=== PATIENT | female | born 1950 | race Caucasian/White ===

== ENCOUNTER → 2017-09-18 | Outpatient (CLI) | payer OTHER ==
[~2017-09-18] MED LIST: ASPCH81X PO; ATOR-26 PO; ATV2 PO; LAMO200T35 PO; LEVO1CAP4 PO; PANT40TA PO; TEMA30CA4 PO; TRAZ100T29 PO; VITAMIN E PO
[2017-09-18 17:55] LABS: BASO % 0.4 %; BASO ABS # 0.03 K/uL (0-0.2); EOS % 2.4 %; EOS ABS # 0.17 K/uL (0-0.5); HEMATOCRIT 37.9 % (37-47); HEMOGLOBIN 12.9 g/dL (12.0-16.0); IG# 0.01 K/uL (0.00-0.02); LYMPH % 38.5 %; LYMPH ABS # 2.75 K/uL (1.2-3.4); MEAN CELL VOLUME 95.2 fL (80-100); MEAN CORPUSCULAR HEMOGLOBIN 32.4 pg (25-34); MONO % 7.3 %; MONO ABS # 0.52 K/uL (0.11-0.59); NEUT % 51.3 %; NEUT ABS # 3.67 K/uL (1.4-6.5); PLATELET COUNT 364 K/uL (130-400); RED CELL DISTRIBUTION WIDTH CV 13.7 % (11.5-14.5); RED CELL DISTRIBUTION WIDTH SD 47.6 fL (36.4-46.3); WHITE BLOOD COUNT 7.15 K/uL (4.8-10.8)
[2017-09-18 18:08] LABS: ALBUMIN 4.2 gm/dl (3.4-5.0); ALT/SGPT 37 U/L (12-78); BLOOD UREA NITROGEN 9 mg/dl (7-18); CALCIUM 9.3 mg/dl (8.5-10.1); CARBON DIOXIDE 26 mmol/L (21-32); CREATININE 0.68 mg/dl (0.60-1.20); GLUCOSE 93 mg/dl (70-99); POTASSIUM 4.1 mmol/L (3.5-5.1); SODIUM 135 mmol/L (136-145)
[2017-09-18 18:18] LABS: ALKALINE PHOSPHATASE 74 U/L (45-117); AST/SGOT 27 U/L (15-37); TOTAL PROTEIN 7.3 gm/dl (6.4-8.2)
== END | disposition home or self-care (01) ==
LOC: C.LABMFLN 15:03
PROVIDERS: ATTEND Family Medicine
DX: R00.2 Palpitations (principal)

== ENCOUNTER 2020-05-07 07:58 | Observation (INO) ==
--- NOTE | 2020-05-04 13:43 | Anesthesiology Consultation ---
Date of Service May 04, 2020 Assessment & Plan (1) Encounter for pre-operative examination: COVID Status: As of 04/23 nurse assessment, patient denies travel to endemic area, known exposure/sick contacts, or symptoms of COVID19. Preoperative COVID19 testing completed on 05/01, results NEGATIVE. S/P R open hernia repair 12/21/18 = atraumatic LMA insertion (LMA #4). No complications. Chart Review Chart Review: Acceptable Risk for Surgery and Patient NOT seen in Pre Admission Testing History Surgery Operation Date: 05/07/20 09:25 Proposed Procedures p Laparoscipic Hiatal Hernia with Fundoplication - Epifanio Parr, Height/Weight Height: 4 ft 11 in Weight: 74.389 kg Allergies Allergy/AdvReac Type Severity Reaction Status Date / Time Sulfa (Sulfonamide Allergy Severe HIVES Verified 04/23/20 11:20 Antibiotics) fluoxetine Allergy Intermediate Hives Verified 04/23/20 11:20 latex Allergy Mild RASH Verified 04/23/20 11:20 Medications Home Medications Medication Instructions Recorded Confirmed Last Taken atorvastatin 80 mg tablet 80 mg PO QAM #90 tab 01/24/19 04/23/20 Unknown buspirone 30 mg tablet 30 mg PO BID #180 tab 01/24/19 04/23/20 Unknown calcium carbonate 600 mg calcium 600 mg PO DAILY #90 tab 01/24/19 04/23/20 Unknown (1,500 mg) tablet cholecalciferol (vitamin D3) 50 4,000 units PO DAILY #180 tab 01/24/19 04/23/20 Unknown mcg (2,000 unit) tablet cholestyramine-aspartame 4 gram 1 g PO QPM #231 gm 01/24/19 04/23/20 Unknown oral powder escitalopram oxalate 20 mg tablet 20 mg PO QAM #90 tab 01/24/19 04/23/20 Unknown famotidine 40 mg tablet 40 mg PO QPM #90 tab 01/24/19 04/23/20 Unknown lamotrigine 200 mg tablet 200 mg PO HS #90 tab 01/24/19 04/23/20 Unknown lorazepam 1 mg tablet See Rx Instructions PO .COMPLEX 01/24/19 04/23/20 Unknown #45 tab psyllium husk 3.4 gram/5.4 gram 4 tbsp PO QAM #660 gm 01/24/19 04/23/20 Unknown oral powder trazodone 100 mg tablet 200 mg PO HS #60 tab 01/24/19 04/23/20 Unknown bupropion HCl 200 mg tablet,12 hr 200 mg PO BID ea 01/29/19 04/23/20 Unknown sustained-release albuterol sulfate 90 mcg/actuation 2 puffs INHALATION Q4H PRN #3 ea 06/19/19 04/23/20 Unknown breath activated powder inhaler pantoprazole 40 mg tablet,delayed 40 mg PO BID #30 tab 12/30/19 04/23/20 Unknown release denosumab 60 mg/mL subcutaneous 60 mg SUBCUT .every six months ml 03/17/20 04/23/20 Unknown syringe methocarbamol 500 mg tablet 500 mg PO TID #90 tab 04/17/20 04/23/20 Unknown zinc 50 mg PO QAM 04/23/20 04/23/20 Unknown Past Medical History Medical History Age related osteoporosis Anxiety and depression Arthritis Chest pain Per cardiology, "chronic atypical chest pain s/p cardiac cath 08/04/15 without significant CAD." Follows yearly with [facility] cardio. Gastritis GERD (gastroesophageal reflux disease) History of bleeding ulcers Hx of ectopic Hyperlipidemia Seizure Questionable seizure , has been on Lamictal since. Sleep apnea CPAP Past Family History Family History Father Heart disease Diabetes Hypertension Pancreatic cancer Sister Diabetes Hodgkin lymphoma Brother Diabetes Mother Hyperthyroidism Melanoma Denies family history of Ovarian cancer Prostate cancer Myocardial infarction Breast cancer Colorectal cancer Past Surgical History Surgical History (Updated 04/23/20 @ 11:35 by Ruba De Santiago RN) Family history of reaction to anesthesia MOTHER AND SISTER SLOW TO WAKE UP H/O abdominal surgery ECTOPIC (LEFT SIDE) History of amputation of toe RT LITTLE TOE History of ankle surgery LEFT DUE TO FRACTURE History of back surgery lumbar vertebral fusion History of bladder surgery BLADDER SLING History of cardiac cath NO PROBLEMS DONE IN [place] History of cataract surgery BILATERAL History of colonoscopy History of esophagogastroduodenoscopy (EGD) History of rectal fissure REPAIR OF History of repair of rectocele History of trigger finger TRIGER RELEASE ON BOTH HANDS History of ventral hernia repair Hx of appendectomy Hx of blepharoplasty BILATERAL Hx of breast biopsy RIGHT AND LEFT Hx of carpal tunnel repair RIGHT AND LEFT Hx of cholecystectomy Hx of dilation and curettage MISCARRIAGE Hx of foot surgery RIGHT AND LEFT Hx of hysterectomy Hx of left inguinal hernia repair Hx of right inguinal hernia repair Hx of shoulder surgery RIGHT AND LEFT Hx of tonsillectomy Hx of tubal ligation Social History Smoking Status: Never smoker Do You Dip or Chew Tobacco: No Hx Alcohol Use: No Hx Substance Use: No substance use type: does not use Testing Laboratory Results 05/01/20 WBC: 6.57 H/H: 13.0/39.2 PLATELETS: 336 SODIUM: 135 POTASSIUM: 4.2 CHLORIDE: 103 CO2: 27 BUN: 9 CREATININE: 0.75 GLUCOSE: 88 Electrocardiogram Date: 05/01/20 Findings: + NSR @ (69bpm) NSTWA. No change from 11/25/18.
--- NOTE | 2020-05-07 07:08 | History & Physical Report ---
Date of Service May 07, 2020 Assessment & Plan (1) Ponce's esophagus: (2) Hiatal hernia: We have discussed this multiple times. We have rediscussed today potential risks which include bleeding, infection, injury to another organ such as the esophagus, spleen, stomach, lungs, etc. We also discussed potential dysphagia, DVT, PE, HI, CVA etc. Following all this I answered her questions. We are going to proceed today with laparoscopic repair of a hiatal hernia with 360 degree fundoplication. (3) GERD (gastroesophageal reflux disease): History of Present Illness Primary Care Provider: DO Jacinta Patel is here today for repair of a large hiatal hernia. We also planning a 360 degree fundoplication procedure as well for acid reflux. She has had longstanding symptoms of her hernia as well as longstanding acid reflux. Manometry work-up was negative which should allow us to perform a complete fundoplication. Allergies Allergy/AdvReac Type Severity Reaction Status Date / Time Sulfa (Sulfonamide Allergy Severe HIVES Verified 05/07/20 08:14 Antibiotics) fluoxetine Allergy Intermediate Hives Verified 05/07/20 08:14 latex Allergy Mild RASH Verified 05/07/20 08:14 Home Medications Home Medications Medication Instructions Recorded Confirmed Type atorvastatin 80 mg tablet 80 mg PO QAM #90 tab 01/24/19 04/23/20 Rx buspirone 30 mg tablet 30 mg PO BID #180 tab 01/24/19 04/23/20 Rx calcium carbonate 600 mg calcium 600 mg PO DAILY #90 tab 01/24/19 04/23/20 Rx (1,500 mg) tablet cholecalciferol (vitamin D3) 50 4,000 units PO DAILY #180 tab 01/24/19 04/23/20 Rx mcg (2,000 unit) tablet cholestyramine-aspartame 4 gram 1 g PO QPM #231 gm 01/24/19 04/23/20 Rx oral powder escitalopram oxalate 20 mg tablet 20 mg PO QAM #90 tab 01/24/19 04/23/20 Rx famotidine 40 mg tablet 40 mg PO QPM #90 tab 01/24/19 04/23/20 Rx lamotrigine 200 mg tablet 200 mg PO HS #90 tab 01/24/19 04/23/20 Rx lorazepam 1 mg tablet See Rx Instructions PO .COMPLEX 01/24/19 04/23/20 Rx #45 tab psyllium husk 3.4 gram/5.4 gram 4 tbsp PO QAM #660 gm 01/24/19 04/23/20 Rx oral powder trazodone 100 mg tablet 200 mg PO HS #60 tab 01/24/19 04/23/20 Rx bupropion HCl 200 mg tablet,12 hr 200 mg PO BID ea 01/29/19 04/23/20 History sustained-release albuterol sulfate 90 mcg/actuation 2 puffs INHALATION Q4H PRN #3 ea 06/19/19 04/23/20 Rx breath activated powder inhaler pantoprazole 40 mg tablet,delayed 40 mg PO BID #30 tab 12/30/19 04/23/20 Rx release denosumab 60 mg/mL subcutaneous 60 mg SUBCUT .every six months ml 03/17/20 04/23/20 History syringe methocarbamol 500 mg tablet 500 mg PO TID #90 tab 04/17/20 04/23/20 Rx zinc 50 mg PO QAM 04/23/20 04/23/20 History Past Med/Surg History Medical History Age related osteoporosis Anxiety and depression Arthritis Chest pain Per cardiology, "chronic atypical chest pain s/p cardiac cath 08/04/15 without significant CAD." Follows yearly with [facility] cardio. Gastritis GERD (gastroesophageal reflux disease) History of bleeding ulcers Hx of ectopic Hyperlipidemia Seizure Questionable seizure , has been on Lamictal since. Sleep apnea CPAP Surgical History Family history of reaction to anesthesia MOTHER AND SISTER SLOW TO WAKE UP H/O abdominal surgery ECTOPIC (LEFT SIDE) History of amputation of toe RT LITTLE TOE History of ankle surgery LEFT DUE TO FRACTURE History of back surgery lumbar vertebral fusion History of bladder surgery BLADDER SLING History of cardiac cath NO PROBLEMS DONE IN [place] History of cataract surgery BILATERAL History of colonoscopy History of esophagogastroduodenoscopy (EGD) History of rectal fissure REPAIR OF History of repair of rectocele History of trigger finger TRIGER RELEASE ON BOTH HANDS History of ventral hernia repair Hx of appendectomy Hx of blepharoplasty BILATERAL Hx of breast biopsy RIGHT AND LEFT Hx of carpal tunnel repair RIGHT AND LEFT Hx of cholecystectomy Hx of dilation and curettage MISCARRIAGE Hx of foot surgery RIGHT AND LEFT Hx of hysterectomy Hx of left inguinal hernia repair Hx of right inguinal hernia repair Hx of shoulder surgery RIGHT AND LEFT Hx of tonsillectomy Hx of tubal ligation Family History Father Heart disease Diabetes Hypertension Pancreatic cancer Sister Diabetes Hodgkin lymphoma Brother Diabetes Mother Hyperthyroidism Melanoma Denies family history of Ovarian cancer Prostate cancer Myocardial infarction Breast cancer Colorectal cancer Social History Smoking Status: Never smoker Second Hand Exposure: No; Do You Dip or Chew Tobacco: No; Tobacco Cessation Education Requested by Patient: No Hx Alcohol Use: No Hx Substance Use: No Preferred Language: Bulgarian Communication Ability: Effective Visual Impairment: Limited Hearing Ability: Normal Remediation Technician Required: No Beliefs That Will Affect Care: None marital status: Current Living Situation: Spouse current occupational status: retired Feels Safe at Home: Yes Safety Concerns: Feels Safe At This Time Childhood Exposure to Second-Hand Smoke: Yes Dental Care, Regularly: Yes Physical Activity Frequency: Does not Exercise Seatbelt Use: always Sunscreen Use: Yes Assistive Devices: Cane, CPAP and Glasses Review of Systems All systems reviewed & are unremarkable except as noted in HPI & below Physical Exam Constitutional: WD/WN, vitals as above no acute distress and not ill appear ing Eyes: PERRL, conjunctivae normal, anicteric sclerae EOM intact bilaterally ENMT: external ear and nose normal, oropharynx normal Ears: no hearing impairment Neck: trachea midline, no thyromegaly Respiratory: normal respiratory effort; no respiratory distress and does not use accessory muscles Cardiovascular: Rate/Rhythm: regular rate and regular rhythm Gastrointestinal (Abdomen): normal bowel sounds, soft, nontender, no hepatosplenomegaly Skin: no rashes, warm and dry Psychiatric: Orientation: alert, oriented x 3 and cooperative
[~2020-05-07 07:58] MED LIST changes: -ASPCH81X PO; -ATOR-26 PO; -ATV2 PO; -LAMO200T35 PO; -LEVO1CAP4 PO; +LR 15ML/HR IV SCH; +MIDAZOLAM HCL 1 MG/ML 2ML VIAL ONE; -PANT40TA PO; -TEMA30CA4 PO; -TRAZ100T29 PO; -VITAMIN E PO; +ceFAZolin 2000MG 2,000 MG/15 ML SYR IV SCH; +fentaNYL citrate 100 MCG/2 ML VIAL ONE
[2020-05-07] MEDS ORDERED: BUPIVACAINE 0.5 % 5 MG/1 ML MPF 30ML VIAL ONE (08:33)
[2020-05-07] MEDS ORDERED: EPINEPHrine INJ 1 MG/ML AMP ONE (08:33)
[2020-05-07] MEDS ORDERED: ONDANSETRON INJ 2 MG/ML 2 ML VIAL IV PRN ×2 (08:50→11:35)
[2020-05-07] MEDS ORDERED: ATROPINE SULFATE 0.1 MG/ML 10ML SYR IV PRN (08:50)
[2020-05-07] MEDS ORDERED: HYDROmorphone INJ 1 MG/ML SYRINGE IV PRN (08:50)
[2020-05-07] MEDS ORDERED: ePHEDrine sulfate 50 MG/ML AMP IV PRN (08:50)
[2020-05-07] MEDS ORDERED: ePHEDrine sulfate 50 MG/ML SYR ONE (09:29)
[2020-05-07] MEDS ORDERED: LIDOCAINE HCL 2% 2 ML VIAL/AMP(20MG/ML) INFIL ONE (09:29)
[2020-05-07] MEDS ORDERED: ONDANSETRON INJ 2 MG/ML 2 ML VIAL ONE (09:29)
[2020-05-07] MEDS ORDERED: DEXAMETHASONE SOD INJ 4 MG/ML VIAL ONE (09:29)
[2020-05-07] MEDS ORDERED: NEOSTIGMINE METHYLSULFATE 5 MG/5 ML SYR ONE (09:29)
[2020-05-07] MEDS ORDERED: LARYING-O-JET KIT (LTA) ONE (09:29)
[2020-05-07] MEDS ORDERED: PROPOFOL IV EMULSION 10 MG/ML 20 ML VIAL IV ONE (09:29)
[2020-05-07] MEDS ORDERED: ROCURONIUM BROMIDE 10 MG/ML 5 ML VIAL IV ONE (09:29)
[2020-05-07] MEDS ORDERED: GLYCOPYRROLATE 0.2 MG/ML VIAL ONE (09:29)
[2020-05-07] MEDS ORDERED: fentaNYL citrate 100 MCG/2 ML VIAL ONE (09:54)
[2020-05-07] MEDS ORDERED: MoRPHine SULFATE 2 MG/ML CARP IV PRN (11:35)
[2020-05-07] MEDS ORDERED: MoRPHine SULFATE 4 MG/ML 1 ML CARP\\VIAL IV PRN (11:35)
[2020-05-07] MEDS ORDERED: oxyCODONE/ACETAMINOPHEN 5mg/325mg TAB PO PRN (11:35)
[2020-05-07] MEDS ORDERED: ALBUT/IPRATROP 3MG/0.5MG NEB 3 ML VIAL NEB STA (11:43)
[2020-05-07] MEDS: fentaNYL citrate 100 MCG/2 ML VIAL IV PRN ×2 (11:47→11:52)
--- NOTE | 2020-05-07 11:54 | Operative Report ---
PG Post Operative Report Pre & Post Diagnosis Operation Date: 05/07/20 09:20 Pre-Op Diagnosis: Hiatal Hernia;gerd Post-Op Diagnosis: Hiatal Hernia;gerd;adhesions I identified the patient and participated in the time-out.: Yes Procedure Operation Date: 05/07/20 09:20 Actual Procedures p Laparoscopic Hiatal Hernia with 360 degree Fundoplication(Not Applicable) ; posterior gastropexy;enterolysis- Epifanio Parr DO Surgeon Epifanio Parr DO Fly Rail Operator harrison Angulo Estimated Blood Loss 10 Findings Consistent with Post-Op Diagnosis Specimens none Description of Procedure After informed consent was obtained the patient was taken to the operating room and placed in supine position. After successful intubation the abdomen was sterilely prepped and draped in usual fashion. Initially I began with a supraumbilical midline incision with an 11 blade scalpel. We carried this down through soft tissue using cautery. I encountered a piece of mesh from previous hernia repair which I opened. However when I entered the abdomen to perform a finger sweep there were far too many adhesions making placement of the camera at this spot too dangerous. I closed the fascia and mesh using 0 Vicryl and then we used the same technique in the left upper quadrant. I cut down to the fascia and opened it and placed 2 #0 Vicryl stay sutures. Peritoneum was elevated and incised using a Metzenbaum scissor. A finger sweep was performed and a 12 mm Martínez trocar was placed. The abdomen was insufflated to 18 mmHg. Laparoscope was inserted. There were multiple midline abdominal adhesions both above and below the midline trocar site. I placed a left upper quadrant 5 mm trocar and used a harmonic scalpel to take down adhesions in the upper midline down to the previously placed trocar. These adhesions involved primarily omentum with some small bowel. Once adhesions were down I then placed a subxiphoid 12 mm port a right upper quadrant 5 mm port and a right flank 5 mm port. The patient was placed in reverse Trendelenburg position. A liver retractor was used throughout the case to hold up the left lobe of the liver. It was secured to a retractor delgado placed on the table. Under the left lobe of the liver there was a moderate sized hiatal hernia with a small amount of gastric incarceration. I was able to use graspers to easily reduce the stomach. Next we had anesthesia remove the NG tube and advance initially a 50 Moroccan bougie. They had difficulty getting the bougie down the esophagus and we subsequently tried a 44 Moroccan bougie which they passed without difficulty. Next we began taking down the hernia sac starting along the right sandra of the diaphragm. I came up the right sandra the diaphragm around the anterior portion and down onto the left sandra. Once I had the hernia sac completely taken down we then took down the top 4-5 short gastric vessels using the harmonic scalpel. This made the fundus of the stomach detached and nice and floppy. Next I elevated the stomach and exposed the diaphragmatic defect below the esophagus. I used 0 Surgidac with an Endo Stitch device to primarily close the hiatal hernia defect posterior to the esophagus. After this I completed closure of the defect anteriorly again using 0 Surgidac with the Endo Stitch device. Once the hiatal hernia was completely repaired I then created a retrogastric window above the left gastric vessels. A reticulating grasper was advanced through this window and reticulated up and out by the angle of His. I was able to grasp the fundus of the stomach and un- reticulate the grasper pulling the fundus of the stomach through the retrogastric window over to the medial side. Again an Endo Stitch device with 0 Surgidac was used to create a posterior gastropexy by securing the fundus of the stomach to the right sandra of the diaphragm. I then completed the 360 degree wrap by grasping body of the stomach lateral to the esophagus and securing it to the fundus on the medial side. 3 separate sutures were used to accomplish this. Prior to doing this I did perform a shoe- shine test and the stomach was nice and floppy and tension-free. After completing the 360 degree fundoplication there was adequate hemostasis. I did irrigate the upper abdomen. We easily removed the 44 Moroccan bougie without difficulty. No other abnormalities were identified. The liver retractor was removed as were all the trochars. The abdomen was desufflated. The fascia of the camera port was closed using 0 Vicryl in a [id number] fashion. The wounds were all irrigated and closed using 4-0 Monocryl. Marcaine was injected around them for postoperative analgesia and skin glue used as a dressing. The patient was awakened extubated and transferred recovery in stable condition. My physician furniture removalist's assistant was present throughout the entire case. She helped prep the patient. She also helped run the camera as well as with retraction throughout my dissection as well as with wound closure and dressing placement. I attest to the content of the Intraoperative Record and any orders documented therein. Any exceptions are noted below.
--- NOTE | 2020-05-07 12:39 | Anesthesiology Progress Note ---
Date of Service May 07, 2020 Anesthesia Post Procedure Vital Signs Vital Signs: Temp Pulse Pulse Resp BP BP Pulse Ox 05/07/20 12:30 36.5 C 81 18 128/87 95 05/07/20 12:20 36.5 C 86 19 133/74 96 05/07/20 12:10 85 14 132/72 96 05/07/20 12:00 85 14 142/97 H 95 05/07/20 11:50 78 78 17 158/91 H 96 05/07/20 11:44 36.8 C 79 16 161/94 H 95 05/07/20 08:23 36.7 C 88 18 122/87 94 Pain Intensity Abdomen: Pain Intensity: 0 Transfer of Care Handoff Completed per policy Notes Mental Status: alert / awake / arousable and participated in evaluation Patient Amnestic to Procedure: Yes Nausea / Vomiting: adequately controlled Pain: adequately controlled Airway Patency, RR, SpO2: stable & adequate BP & HR: stable & adequate Hydration State: stable & adequate Anesthetic Complications: no major complications apparent and Pt Satisfied with anesthetic care
[2020-05-07] MEDS: oxyCODONE/ACETAMINOPHEN 5mg/325mg TAB PO PRN ×3 (13:07→21:58)
[2020-05-07] MEDS: LACTATED RINGER'S 1,000 ML IV SCH ×2 (13:10→21:56)
[2020-05-07] MEDS: ALBUTEROL HFA 8 GM INHALER INH PRN ×2 (16:23→21:08)
[2020-05-07] MEDS: LORazepam 1 MG TAB PO SCH (20:21)
[2020-05-07] MEDS: MoRPHine SULFATE 2 MG/ML CARP IV PRN (20:21)
[2020-05-07] MEDS: busPIRone 15 MG TAB PO SCH (21:01)
[2020-05-07] MEDS: FAMOTIDINE 40 MG TABLET PO SCH (21:02)
[2020-05-07] MEDS: traZODone HCL 100 MG TAB PO SCH (21:02)
[2020-05-07] MEDS: buPROPion SR 100 MG TABCR PO SCH (21:02)
[2020-05-07] MEDS: PANTOprazole 40 MG TAB PO SCH (21:03)
[2020-05-07] MEDS: lamoTRIgine 100 MG TAB PO SCH (21:03)
[2020-05-07] MEDS ORDERED: POLYETHYLENE (MIRALAX) 17 GM PACK PO PRN (22:51)
[2020-05-07] MEDS ORDERED: METHYLCELLULOSE POWDER 454 GM JAR PO PRN (22:52)
[2020-05-07] MEDS ORDERED: COUGH DROP (SUGAR FREE) LOZ 24 LOZ/1 BOX BUCCAL PRN (22:53)
--- NOTE | 2020-05-07 23:52 | Hospitalist Consultation ---
Date of Consultation May 07, 2020 Assessment & Plan (1) Hyperlipidemia: (2) Obstructive sleep apnea: Pt is a 70yo with a PMHx of anxiety, depression, bipolar disorder, Bojorquez's esophagus, GERD, esophageal ulcers, HLD, JOHNATHAN on CPAP who is s/p hiatal hernia repair on 07/07/20. Consultation placed for medical management. Hiatal Hernia Repair -pt post-op for hiatal repair on 07/07/2020 -states pain well controlled -management per surgical team Wheezing -Pt with noted hx of SOB with albuterol use as needed at home -breath sounds clear on examination -albuterol NEB treatments as needed -continue use of incentive spirometer HLD -continue home atorvastatin Anxiety/Depression -continue home bupropion, buspirone, escitalopram, trazodone, lorazepam Osteoporosis -continue home denosumab, premarin GERD/esophageal ulcers/bojorquez's esophagus -continue home famotidine, pantoprazole Bipolar Disorder -continue home lamotrigine JOHNATHAN -on CPAP, continue qhs FEN/GI: Clear liquids DVT prophylaxis: SCDs currently CODE STATUS: Full code (3) Hiatal hernia: (4) GERD (gastroesophageal reflux disease): (5) Esophageal ulcer: (6) Urinary incontinence: (7) Arthritis: (8) Bojorquez's esophagus: (9) Gastric ulcer: (10) Bipolar disorder: (11) Anxiety: (12) Depression: Supervising Physician Co-Signing Physician Notes Attending addendum: I have physically seen this patient, have supervised the medical residents activities, and agree with the H&P unless as otherwise noted. Assessment and Plan: Wheezing//history of bronchospasm- Placed on albuterol-nebulizer 4 times daily as needed No signs of active infection. Obstructive sleep apnea- CPAP at bedtime Anxiety/depression/bipolar disorder- Continue bupropion, buspirone, Escitalopram, trazodone, lorazepam and lamotrigine. GERD/esophageal ulcers/Bojorquez's esophagus- Continue pantoprazole and famotidine. Remainder orders notations as noted History of Present Illness Attending Physician: Epifanio Parr, DO History of Present Illness Pt is a 70yo with a PMHx of anxiety, depression, bipolar disorder, Bojorquez's esophagus, GERD, esophageal ulcers, HLD, JOHNATHAN on CPAP who is s/p hiatal hernia repair on 07/07/20. Consultation placed for medical management. Pt states that her pain is well controlled post-op but she has not yet had a bowel movement. She is tolerating the clear liquid diet. Had the CPAP machine on and states it helps her at night since she has JOHNATHAN. Stated she had no trouble breathing. Allergies Allergy/AdvReac Type Severity Reaction Status Date / Time Sulfa (Sulfonamide Allergy Severe HIVES Verified 05/07/20 08:14 Antibiotics) fluoxetine Allergy Intermediate Hives Verified 05/07/20 08:14 latex Allergy Mild RASH Verified 05/07/20 08:14 Home Medications Home Medications Medication Instructions Recorded Confirmed Type atorvastatin 80 mg tablet 80 mg PO QAM #90 tab 01/24/19 05/07/20 Rx buspirone 30 mg tablet 30 mg PO BID #180 tab 01/24/19 05/07/20 Rx calcium carbonate 600 mg calcium 600 mg PO DAILY #90 tab 01/24/19 05/07/20 Rx (1,500 mg) tablet cholecalciferol (vitamin D3) 50 4,000 units PO DAILY #180 tab 01/24/19 05/07/20 Rx mcg (2,000 unit) tablet cholestyramine-aspartame 4 gram 1 g PO QPM #231 gm 01/24/19 05/07/20 Rx oral powder escitalopram oxalate 20 mg tablet 20 mg PO QAM #90 tab 01/24/19 05/07/20 Rx famotidine 40 mg tablet 40 mg PO QPM #90 tab 01/24/19 05/07/20 Rx lamotrigine 200 mg tablet 200 mg PO HS #90 tab 01/24/19 05/07/20 Rx lorazepam 1 mg tablet See Rx Instructions PO .COMPLEX 01/24/19 05/07/20 Rx #45 tab psyllium husk 3.4 gram/5.4 gram 4 tbsp PO QAM #660 gm 01/24/19 05/07/20 Rx oral powder trazodone 100 mg tablet 200 mg PO HS #60 tab 01/24/19 05/07/20 Rx bupropion HCl 200 mg tablet,12 hr 200 mg PO BID ea 01/29/19 05/07/20 History sustained-release albuterol sulfate 90 mcg/actuation 2 puffs INHALATION Q4H PRN #3 ea 06/19/19 05/07/20 Rx breath activated powder inhaler pantoprazole 40 mg tablet,delayed 40 mg PO BID #30 tab 12/30/19 05/07/20 Rx release denosumab 60 mg/mL subcutaneous 60 mg SUBCUT .every six months ml 03/17/20 05/07/20 History syringe zinc 50 mg PO QAM 04/23/20 05/07/20 History conjugated estrogens [Premarin] 0.625 mg VAGINAL 3XWK 05/07/20 05/07/20 History oxycodone-acetaminophen [Percocet] 1 - 2 tab PO .q4-6h PRN #15 tab 05/07/20 Rx prochlorperazine maleate 5 mg PO Q6H PRN #14 tab 05/08/20 Rx [Compazine] Patient History Medical History Age related osteoporosis Anxiety and depression Arthritis Chest pain Per cardiology, "chronic atypical chest pain s/p cardiac cath 08/04/15 without significant CAD." Follows yearly with S cardio. Gastritis GERD (gastroesophageal reflux disease) History of bleeding ulcers Hx of ectopic Hyperlipidemia Seizure Questionable seizure , has been on Lamictal since. Sleep apnea CPAP Surgical History Family history of reaction to anesthesia MOTHER AND SISTER SLOW TO WAKE UP H/O abdominal surgery ECTOPIC (LEFT SIDE) History of amputation of toe RT LITTLE TOE History of ankle surgery LEFT DUE TO FRACTURE History of back surgery lumbar vertebral fusion History of bladder surgery BLADDER SLING History of cardiac cath NO PROBLEMS DONE IN [place] History of cataract surgery BILATERAL History of colonoscopy History of esophagogastroduodenoscopy (EGD) History of rectal fissure REPAIR OF History of repair of hiatal hernia Laparoscopic Hiatal Hernia with 360 degree Fundoplication(Not Applicable) ; posterior gastropexy;enterolysis Dr. Parr 05/07/2020 History of repair of rectocele History of trigger finger TRIGER RELEASE ON BOTH HANDS History of ventral hernia repair Hx of appendectomy Hx of blepharoplasty BILATERAL Hx of breast biopsy RIGHT AND LEFT Hx of carpal tunnel repair RIGHT AND LEFT Hx of cholecystectomy Hx of dilation and curettage MISCARRIAGE Hx of foot surgery RIGHT AND LEFT Hx of hysterectomy Hx of left inguinal hernia repair Hx of right inguinal hernia repair Hx of shoulder surgery RIGHT AND LEFT Hx of tonsillectomy Hx of tubal ligation Family History Father Heart disease Diabetes Hypertension Pancreatic cancer Sister Diabetes Hodgkin lymphoma Brother Diabetes Mother Hyperthyroidism Melanoma Denies family history of Ovarian cancer Prostate cancer Myocardial infarction Breast cancer Colorectal cancer Social History Smoking Status: Never smoker Second Hand Exposure: No; Do You Dip or Chew Tobacco: No; Tobacco Cessation Education Requested by Patient: No Hx Alcohol Use: No Hx Substance Use: No Preferred Language: Syriac Communication Ability: Effective Visual Impairment: Limited Hearing Ability: Normal Soldering Machine Operator Required: No Beliefs That Will Affect Care: None marital status: Current Living Situation: Spouse current occupational status: retired Feels Safe at Home: Yes Safety Concerns: Feels Safe At This Time Childhood Exposure to Second-Hand Smoke: Yes Dental Care, Regularly: Yes Physical Activity Frequency: Does not Exercise Seatbelt Use: always Sunscreen Use: Yes Assistive Devices: Walker Review of Systems Constitutional: no fever, no chills and no sweats Eyes: no worsening vision Ear, Nose, Mouth, Throat: + nasal congestion; no sore throat Respiratory: no cough and no dyspnea Cardiovascular: no chest pain, no palpitations and no edema Gastrointestinal: + abdominal pain; no nausea and no vomiting Genitourinary: no dysuria Musculoskeletal: no muscle weakness Integumentary: no rash Neurologic: no headache(s) and no confusion Psychiatric: no confusion Physical Exam Physical Exam: General: Alert, oriented. No acute distress, laying in bed with mask on face Skin: No noted rashes or bruises Psych: Appropriate mood and affect Neuro: No gross deficits HEENT: NC/AT Chest: Nontender to palpation. CV: RRR, Normal s1, s2. No murmurs appreciated Resp: Breath sounds clear bilaterally, no increased effort of breathing. No crackles/rhonchi/rales. Abdomen: Soft, tender, nondistended. Extremities: No edema in lower extremities bilaterally. Results & Data Results & Data ([facility]) Vital Signs (Past 12 Hours) Vital Signs Temp Pulse Pulse Pulse Resp BP BP 05/07/20 19:11 36.7 C 97 H 18 110/66 05/07/20 16:24 86 20 10/29/20 15:47 36.9 C 94 H 20 111/64 05/07/20 13:51 97 H 16 116/82 05/07/20 12:30 36.5 C 81 18 128/87 05/07/20 12:20 36.5 C 86 19 133/74 05/07/20 12:10 85 14 132/72 05/07/20 12:00 85 14 142/97 H 05/07/20 11:50 78 78 17 158/91 H Pulse Ox 05/07/20 19:11 92 05/07/20 16:24 93 05/07/20 15:47 95 05/07/20 13:51 93 05/07/20 12:30 95 05/07/20 12:20 96 05/07/20 12:10 96 05/07/20 12:00 95 05/07/20 11:50 96 Resident Activity Tracking Resident Involvement: Resident Care Provided Care Provided: Adult Hospital Medicine
[2020-05-08] MEDS ORDERED: MELATONIN 3 MG TAB PO PRN (00:36)
[2020-05-08] MEDS: oxyCODONE/ACETAMINOPHEN 5mg/325mg TAB PO PRN ×4 (02:21→22:36)
[2020-05-08 06:39] LABS: Basophils # (auto) 0.01 K/uL (0-0.2); Basophils % (auto) 0.1 %; Eosinophils # (auto) 0.01 K/uL (0-0.5); Eosinophils % (auto) 0.1 %; Hematocrit (blood only) 33.5 % (37-47); Hemoglobin 11.2 g/dL (12.0-16.0); Immature Granulocytes # (auto) 0.01 K/uL (0.00-0.02); Immature Granulocytes % (auto) 0.1 %; Lymphocytes # (auto) 2.07 K/uL (1.2-3.4); Lymphocytes % (auto) 26.1 %; Mean Corpuscular Hemoglobin 31.9 pg (25-34); Mean Corpuscular Hgb Conc 33.4 g/dL (32-36); Mean Corpuscular Volume 95.4 fL (80-100); Monocytes # (auto) 0.93 K/uL (0.11-0.59); Monocytes % (auto) 11.7 %; Neutrophils % (auto) 61.9 %; Platelet Count 307 K/uL (130-400); RDW Coefficient of Variation 13.5 % (11.5-14.5); RDW Standard Deviation 46.7 fL (36.4-46.3); Red Blood Count 3.51 M/uL (4.2-5.4); White Blood Count 7.93 K/uL (4.8-10.8)
[2020-05-08 07:10] LABS: Albumin Level 3.3 gm/dl (3.4-5.0); BUN Creatinine Ratio 8.6 (10-20); Calcium 8.5 mg/dl (8.5-10.1); Creatinine Clr Calc Pharmacy 74.7 ml/min; Est GFR (African American) 105.7; Est GFR (Non-African American) 91.2; Potassium 3.8 mmol/L (3.5-5.1)
[2020-05-08 07:13] LABS: Albumin Globulin Ratio 1.1 (0.9-2); Bilirubin,Total 0.5 mg/dl (0.2-1); Total Protein 6.3 gm/dl (6.4-8.2)
[2020-05-08] MEDS: LACTATED RINGER'S 1,000 ML IV SCH (09:12)
[2020-05-08] MEDS: LORazepam 0.5 MG TAB PO SCH (09:15)
[2020-05-08] MEDS: buPROPion SR 100 MG TABCR PO SCH ×2 (09:16→20:45)
[2020-05-08] MEDS: PANTOprazole 40 MG TAB PO SCH ×2 (09:16→20:45)
[2020-05-08] MEDS: busPIRone 15 MG TAB PO SCH ×2 (09:16→20:46)
--- NOTE | 2020-05-08 09:16 | Surgery Progress Note ---
Date of Service May 08, 2020 Assessment & Plan (1) Hiatal hernia: POD#1 laparoscopic hiatal hernia repair with fundoplication Patient tolerated clears, will advance diet to full liquids this AM Overnight patient required multiple straight-caths for urinary retention, will ask patient to get up and ambulate today, if still retaining may need to consider rodriguez catheter placement Incisions c/d/i, will continue percocet prn for pain Appreciate medicine assistance with patient Will evaluate patient later today, but may require another night in the hospital as above. doing ok but not ready for d/c. main issue is unable to void ( which she has had in the past following surgery). will place rodriguez. continue supportive care. possible d/c tomorrow. Admission and Anticipated Discharge Date Admission Date: May 07, 2020 Subjective Patient states she did not sleep well last night. Was having abdominal pain/ lower abdominal pressure and required a couple straight catheterizations overnight for urinary retention. She is feeling somewhat better this AM and pain is controlled. She is tolerating clears without nausea/vomiting. Physical Exam Physical Exam: awake Respiratory: normal respiratory effort Gastrointestinal (Abdomen): Inspection/Auscultation: + abdominal surgical incision (c/d/i with dermabond overtop, some sheldon-incisional ecchymosis) Percussion/Palpation: + abdomen tender (appropriately ttp sheldon-incisionally) and abdomen soft Results & Data ([facility]) Vital Signs (Past 12 Hours) Vital Signs Temp Pulse Resp BP Pulse Ox 05/08/20 07:21 36.6 C 71 16 137/72 90 05/08/20 04:02 36.6 C 74 14 129/74 92 05/07/20 23:59 36.8 C 86 14 119/68 92 PG Care Time/CCT Total # of Minutes Spent Total Time Spent with Patient: Total time spent is greater than 50% in coordination of care (as documented) at patient's floor/unit and/or counseling patient: Coding Level of Care Code None Diagnoses Hiatal hernia K44.9
[2020-05-08] MEDS: ATORVASTATIN 40 MG TAB PO SCH (09:17)
[2020-05-08] MEDS: ESCITALOPRAM OXALATE 20 MG TAB PO SCH (09:17)
[2020-05-08] MEDS: guaiFENesin/DEXTROM SYRUP 100MG/10MG 5ML UDC PO PRN ×2 (09:23→21:12)
[2020-05-08] MEDS: ALBUTEROL 0.083% NEBU SOLN 3 ML VIAL NEB PRN ×2 (09:31→21:08)
[2020-05-08] MEDS: PSYLLIUM 58.6% POWDER PACKET PO SCH (11:02)
--- NOTE | 2020-05-08 17:31 | Hospitalist Progress Note ---
Date of Service May 08, 2020 Assessment & Plan (1) Post-operative state: S/p Laparoscopic hiatal hernia with fundoplication 05/07 Pain control, dvt proph per primary (2) Urinary retention: Likely secondary to anesthesia, if persistent, suggest urology consult (3) Hyperlipidemia: Cotinue statin (4) Anxiety: Continue buspirone (5) Osteoporosis: Continue vitamin D supplementation (6) GERD (gastroesophageal reflux disease): Continue pantoprazole, famotidine (7) Bipolar disorder: Continue lamotrigine (8) Obstructive sleep apnea: CPAP at night Thank you for involving us in the care of this patient. Please call with any questions or concerns, hospitalists will sign off at this time. Admission and Anticipated Discharge Date Admission Date: May 07, 2020 Subjective Ms. Canales is having some issues with post op urine retention but otherwise is in good spirits. Her pain is well controlled ROS Constitutional: no chills, aches, sweats or fever Respiratory: no sob,cough, sputum, or wheezing Cardiac: no chest pain, palpitations, edema, orthopnea or lightheadedness GI: no abdominal pain, nausea, vomiting, diarrhea or constipation : no dysuria or hesitancy Extremities: no joint pain or weakness Skin: no rash All other systems reviewed and negative Physical Exam Physical Exam: General: no distress Eyes: normal inspection, PERLL Respiratory: chest non tender, clear to auscultation, normal breath sounds, no respiratory distress, no accessory muscle use Cardiac: regular rate and rhythm, no rub or gallop, no murmur, no edema, no jvd GI/: active bowel sounds, no abd pain or tenderness, soft, non distended Extremities: normal range of motion, normal strength, non tender Neuro/Psych: alert and oriented x 3, normal mood and affect Skin: normal color, dry Results & Data Results & Data ([facility]) Vital Signs (Past 12 Hours) Vital Signs Temp Pulse Resp BP Pulse Ox 05/08/20 15:53 36.8 C 75 16 115/66 91 05/08/20 09:31 82 20 93 05/08/20 07:21 36.6 C 71 16 137/72 90 PG Care Time/CCT Total # of Minutes Spent Total Time Spent with Patient: Total time spent is greater than 50% in coordination of care (as documented) at patient's floor/unit and/or counseling patient: Coding Level of Care Code 83738 Subseq Hosp Care Lvl 2 Diagnoses Post-operative state Z98.890 Urinary retention R33.9 Hyperlipidemia E78.5 Anxiety F41.9 Osteoporosis M81.0 GERD (gastroesophageal reflux disease) K21.9 Bipolar disorder F31.9 Obstructive sleep apnea G47.33
[2020-05-08] MEDS: LORazepam 1 MG TAB PO SCH (20:43)
[2020-05-08] MEDS: lamoTRIgine 100 MG TAB PO SCH (20:44)
[2020-05-08] MEDS: traZODone HCL 100 MG TAB PO SCH (20:46)
[2020-05-08] MEDS: FAMOTIDINE 40 MG TABLET PO SCH (20:46)
[2020-05-08] MEDS ORDERED: diphenhydrAMINE Capsule 25 MG CAP PO ONE (21:53)
--- NOTE | 2020-05-08 22:56 | Billing Data ---
Date of Service May 08, 2020 Coding Level of Care Code 76962 Inpt Consult Level 3
[2020-05-09] MEDS: MoRPHine SULFATE 2 MG/ML CARP IV PRN ×3 (01:20→12:59)
[2020-05-09] MEDS: guaiFENesin/DEXTROM SYRUP 100MG/10MG 5ML UDC PO PRN (02:41)
[2020-05-09] MEDS: oxyCODONE/ACETAMINOPHEN 5mg/325mg TAB PO PRN ×3 (02:41→15:15)
[2020-05-09] MEDS: ALBUTEROL 0.083% NEBU SOLN 3 ML VIAL NEB PRN (02:52)
[2020-05-09] MEDS: busPIRone 15 MG TAB PO SCH ×2 (09:25→21:05)
[2020-05-09] MEDS: buPROPion SR 100 MG TABCR PO SCH ×2 (09:25→21:08)
[2020-05-09] MEDS: PANTOprazole 40 MG TAB PO SCH ×2 (09:25→21:07)
[2020-05-09] MEDS: ATORVASTATIN 40 MG TAB PO SCH (09:26)
[2020-05-09] MEDS: ESCITALOPRAM OXALATE 20 MG TAB PO SCH (09:26)
[2020-05-09] MEDS: PSYLLIUM 58.6% POWDER PACKET PO SCH (09:26)
[2020-05-09 09:40] LABS: Basophils # (auto) 0.01 K/uL (0-0.2); Basophils % (auto) 0.1 %; Eosinophils # (auto) 0.19 K/uL (0-0.5); Eosinophils % (auto) 2.8 %; Hematocrit (blood only) 34.2 % (37-47); Hemoglobin 11.2 g/dL (12.0-16.0); Immature Granulocytes # (auto) 0.01 K/uL (0.00-0.02); Immature Granulocytes % (auto) 0.1 %; Lymphocytes # (auto) 1.54 K/uL (1.2-3.4); Lymphocytes % (auto) 22.5 %; Mean Corpuscular Hemoglobin 31.9 pg (25-34); Mean Corpuscular Hgb Conc 32.7 g/dL (32-36); Mean Corpuscular Volume 97.4 fL (80-100); Mean Platelet Volume 8.5 fL (7.4-10.4); Monocytes # (auto) 0.41 K/uL (0.11-0.59); Neutrophils # (auto) 4.68 K/uL (1.4-6.5); Neutrophils % (auto) 68.5 %; Platelet Count 268 K/uL (130-400); RDW Coefficient of Variation 13.7 % (11.5-14.5); RDW Standard Deviation 48.8 fL (36.4-46.3); Red Blood Count 3.51 M/uL (4.2-5.4); White Blood Count 6.84 K/uL (4.8-10.8)
[2020-05-09] MEDS: LORazepam 0.5 MG TAB PO SCH (09:52)
--- NOTE | 2020-05-09 09:52 | Surgery Progress Note ---
Date of Service May 09, 2020 Assessment & Plan (1) GERD (gastroesophageal reflux disease): pod 2 clinically improving. will keep one more day. will d/c rodriguez tomorrow am and see if she can void...if unable may to have rodriguez re-inserted and home with leg bag. (2) Urinary retention: Admission and Anticipated Discharge Date Admission Date: May 07, 2020 Subjective pt seen. feeling better today but not ready to go home. she is afraid to have rodriguez removed. tong liquids ok. pain reasonably controlled Physical Exam Physical Exam: alert. nad abd: soft. mild distensions. wounds look good. Results & Data ([facility]) Vital Signs (Past 12 Hours) Vital Signs Temp Pulse Resp BP Pulse Ox 05/09/20 07:13 36.8 C 84 16 123/79 92 05/09/20 03:01 92 05/09/20 02:55 88 22 05/09/20 02:50 20 87 L 05/08/20 23:57 36.9 C 81 14 142/73 H 92 PG Care Time/CCT Total # of Minutes Spent Total Time Spent with Patient: Total time spent is greater than 50% in coordination of care (as documented) at patient's floor/unit and/or counseling patient: Coding Level of Care Code None Diagnoses GERD (gastroesophageal reflux disease) K21.9 Urinary retention R33.9
--- NOTE | 2020-05-09 10:06 | XRay Report ---
SINGLE VIEW CHEST CLINICAL HISTORY: Wheezing. Crackles on physical examination. FINDINGS: An AP, portable, upright chest radiograph is obtained. No prior studies are available for c omparison at the time of dictation. The examination is degraded by portable technique and patient ro tation. The heart is top normal for projection. The pulmonary vasculature is noncongested. There ar e low lung volumes. Nonspecific interstitial thickening is likely chronic. Airspace consolidation is seen at the left lung base. No large pleural effusion or pneumothorax is seen. The skeletal structure s are osteopenic. The bony thorax is grossly intact. IMPRESSION: Airspace consolidation is seen at the left lung base. This could represent scarring/atele ctasis versus pneumonia/aspiration pneumonitis and clinical correlation will be required. ACT 112: Negative or not required by law. Electronically signed by: Lauro Rosales M.D. 05/09/2020 10:04 AM
[2020-05-09 10:17] LABS: Albumin Level 3.2 gm/dl (3.4-5.0); BUN Creatinine Ratio 3.2 (10-20); Calcium 7.9 mg/dl (8.5-10.1); Creatinine Clr Calc Pharmacy 51.2 ml/min; Est GFR (African American) 75.6; Est GFR (Non-African American) 65.2; Potassium 3.7 mmol/L (3.5-5.1)
[2020-05-09 10:20] LABS: Albumin Globulin Ratio 1.1 (0.9-2); Bilirubin,Total 0.5 mg/dl (0.2-1); Globulin 2.9 gm/dl (2.5-4.0); Total Protein 6.1 gm/dl (6.4-8.2)
[2020-05-09] MEDS: lamoTRIgine 100 MG TAB PO SCH (21:06)
[2020-05-09] MEDS: traZODone HCL 100 MG TAB PO SCH (21:06)
[2020-05-09] MEDS: FAMOTIDINE 40 MG TABLET PO SCH (21:07)
[2020-05-09] MEDS: LORazepam 1 MG TAB PO SCH (21:09)
[2020-05-10 06:08] LABS: Basophils # (auto) 0.02 K/uL (0-0.2); Basophils % (auto) 0.2 %; Eosinophils # (auto) 0.22 K/uL (0-0.5); Eosinophils % (auto) 2.6 %; Hematocrit (blood only) 36.2 % (37-47); Immature Granulocytes # (auto) 0.02 K/uL (0.00-0.02); Immature Granulocytes % (auto) 0.2 %; Lymphocytes # (auto) 2.12 K/uL (1.2-3.4); Lymphocytes % (auto) 24.7 %; Mean Corpuscular Hemoglobin 31.9 pg (25-34); Mean Corpuscular Hgb Conc 33.1 g/dL (32-36); Mean Corpuscular Volume 96.3 fL (80-100); Mean Platelet Volume 8.6 fL (7.4-10.4); Monocytes # (auto) 0.87 K/uL (0.11-0.59); Monocytes % (auto) 10.1 %; Neutrophils # (auto) 5.35 K/uL (1.4-6.5); Neutrophils % (auto) 62.2 %; Platelet Count 264 K/uL (130-400); RDW Coefficient of Variation 13.6 % (11.5-14.5); RDW Standard Deviation 48.3 fL (36.4-46.3); Red Blood Count 3.76 M/uL (4.2-5.4)
[2020-05-10 06:38] LABS: Albumin Level 3.3 gm/dl (3.4-5.0); BUN Creatinine Ratio 5.9 (10-20); Calcium 8.4 mg/dl (8.5-10.1); Potassium 3.9 mmol/L (3.5-5.1)
[2020-05-10 06:45] LABS: Bilirubin,Total 0.5 mg/dl (0.2-1); Globulin 3.3 gm/dl (2.5-4.0); Total Protein 6.6 gm/dl (6.4-8.2)
--- NOTE | 2020-05-10 07:15 | Surgery Progress Note ---
Date of Service May 10, 2020 Assessment & Plan (1) Urinary retention: -will d/c rodriguez today and if pt. able to void will d/c home as above. feeling much better. keyshawn d/c rodriguez. home with leg bag if still unable to void. instructions given. will also try flomax dose (2) Hiatal hernia: -doing well post-op -continue current diet Admission and Anticipated Discharge Date Admission Date: May 07, 2020 Subjective Pt. doing well. No N/V. Tolerating oral intake. Physical Exam Gastrointestinal (Abdomen): Percussion/Palpation: abdomen soft; abdomen nontender Results & Data ([facility]) Vital Signs (Past 12 Hours) Vital Signs Temp Pulse Resp BP Pulse Ox 05/10/20 00:12 36.9 C 81 20 156/82 H 90 PG Care Time/CCT Total # of Minutes Spent Total Time Spent with Patient: Total time spent is greater than 50% in coordination of care (as documented) at patient's floor/unit and/or counseling patient: Coding Level of Care Code None Diagnoses Urinary retention R33.9 Hiatal hernia K44.9
[2020-05-10] MEDS: ATORVASTATIN 40 MG TAB PO SCH (07:27)
[2020-05-10] MEDS: PSYLLIUM 58.6% POWDER PACKET PO SCH (07:28)
[2020-05-10] MEDS: ESCITALOPRAM OXALATE 20 MG TAB PO SCH (07:28)
[2020-05-10] MEDS: busPIRone 15 MG TAB PO SCH (07:28)
[2020-05-10] MEDS: PANTOprazole 40 MG TAB PO SCH (07:28)
[2020-05-10] MEDS: buPROPion SR 100 MG TABCR PO SCH (07:28)
[2020-05-10] MEDS: oxyCODONE/ACETAMINOPHEN 5mg/325mg TAB PO PRN ×2 (07:29→10:19)
[2020-05-10] MEDS: LORazepam 0.5 MG TAB PO SCH (07:32)
[2020-05-10] MEDS ORDERED: TAMSULOSIN HCL 0.4 MG CAP PO ONE (08:43)
--- NOTE | 2020-05-13 08:59 | Discharge Summary ---
Date of Service May 13, 2020 Admission HPI Per Admitting Provider Jacinta is here today for repair of a large hiatal hernia. We also planning a 360 degree fundoplication procedure as well for acid reflux. She has had longstanding symptoms of her hernia as well as longstanding acid reflux. Manometry work-up was negative which should allow us to perform a complete fundoplication. Principal Diagnosis hiatal hernia Discharge Exam Constitutional no acute distress Gastrointestinal (Abdomen) Inspection/Auscultation: + abdominal surgical incision (c/d/i) Percussion/Palpation: abdomen soft; abdomen nontender Discharge Data Allergies Allergy/AdvReac Type Severity Reaction Status Date / Time Sulfa (Sulfonamide Allergy Severe HIVES Verified 05/07/20 08:14 Antibiotics) fluoxetine Allergy Intermediate Hives Verified 05/07/20 08:14 latex Allergy Mild RASH Verified 05/07/20 08:14 Consultations 05/07/20 20:32 Consult Hospitalist Routine Procedures Performed Operation Date: 05/07/20 09:20 Actual Procedures p Laparoscopic Hiatal Hernia with Fundoplication(Not Applicable) - Epifanio Parr, Hospital Course (1) Hiatal hernia: This is a 70y F who presented to the [facility] on 10 for elective repair of her hiatal hernia. She underwent a hiatal hernia repair with fundoplication & posterior gastropexy with Dr. Parr. The patient tolerated the procedure well, see op note for full details. The patient recovered in the PACU and was transferred to the med/surg unit in stable condition. On POD#0 patient was given a clear liquid diet, a prn pain regimen, and had prn anti-nausea medication available should she need it. She required a couple straight-catheterizations overnight for urinary retention. On POD#1 patient's diet was advanced to full liquids. A rodriguez catheter was ultimately placed due to failure to void. Ambulation was encouraged. Pain controlled and incisions c/d/i. On POD#2 patient clinically feeling better overall. She was continued on full liquid diet without issue and her rodriguez catheter remained in place for one more day. On POD#3 the patient was given a trial to void and she was subsequently deemed stable for discharge to home thereafter. She was instructed to continue on a soft/liquidy diet for 1 week until she follows up in clinic with Dr. Parr. Total Time Total Time Spent Total Time Spent (In Minutes): 15 Discharge Plan Discharge Items Patient Disposition: Home - Self-Care Reason For Visit: Hiatal Hernia Discharge Diagnosis: hiatal hernia repair Activity: Per Instructions section Lifting: No more than 10 pounds Bathing Comment: may shower; no soaking in tubs/pools Exercise/Sports: Wait until after follow-up appointment Driving/Machine Use: do not resume driving while taking narcotics for pain Non-emergency contact: Surgeon Call non-emergency contact if: you have any medication questions, your symptoms worsen, your pain is not controlled, your pain is worsening, your pain is unusual for you, your pain is concerning for you, you have a fever, your temperature is above 101.5, your wound has increased redness, your wound has increased drainage and your wound pain has increased Follow-up/Referrals: Epifanio Parr DO [Surgeon] - (Please call to schedule follow up in clinic within 1 week) Remi Trevino DO [Primary Care Provider] - Diet: Full liquid Diet Comment: soft/liquidy diet- that can be eaten with a spoon.as discussed with surgeon Addtl Attending Provider Instructions: Pending Studies at Discharge: No Stand-Alone Forms: My Sumerian, Smoking Cessation Medications and DC Order Prescriptions: New oxycodone-acetaminophen [Percocet] 5-325 mg tablet 1 - 2 tab PO .q4-6h PRN (Reason: pain, for initial therapy, max 6 tabs per day) Qty: 15 RF: 0 prochlorperazine maleate [Compazine] 5 mg tablet 5 mg PO Q6H PRN (Reason: nausea/vomiting) Qty: 14 RF: 0 Continued albuterol sulfate 90 mcg/actuation aerosol powdr breath activated 2 puffs inhalation Q4H PRN (Reason: shortness of breath or wheezing) Qty: 3 RF: 3 lorazepam 1 mg tablet See Rx Instructions PO .COMPLEX Qty: 45 RF: 0 atorvastatin [Lipitor] 80 mg tablet 80 mg PO QAM Qty: 90 RF: 3 buspirone 30 mg tablet 30 mg PO BID Qty: 180 RF: 3 calcium carbonate 600 mg calcium (1,500 mg) tablet 600 mg PO DAILY Qty: 90 RF: 3 Cholestyramine Light 4 gram powder 1 g PO QPM Qty: 231 RF: 3 escitalopram oxalate [Lexapro] 20 mg tablet 20 mg PO QAM Qty: 90 RF: 3 famotidine [Pepcid] 40 mg tablet 40 mg PO QPM Qty: 90 RF: 3 lamotrigine [Lamictal] 200 mg tablet 200 mg PO HS Qty: 90 RF: 3 Metamucil 3.4 gram/5.4 gram powder 4 tbsp PO QAM Qty: 660 RF: 3 trazodone 100 mg tablet 200 mg PO HS Qty: 60 RF: 1 cholecalciferol (vitamin D3) 2,000 unit tablet 4,000 units PO DAILY Qty: 180 RF: 3 bupropion HCl [Wellbutrin SR] 200 mg tablet sustained-release 12 hr 200 mg PO BID RF: 0 pantoprazole [Protonix] 40 mg tablet,delayed release (DR/EC) 40 mg PO BID Qty: 30 RF: 2 Prolia 60 mg/mL syringe 60 mg subcut .every six months RF: 0 zinc 50 mg Capsule 50 mg PO QAM RF: 0 Premarin 0.625 mg/gram Cream 0.625 mg VAGINAL 3XWK RF: 0 Discharge Orders: Discharge Order (Routine); Ordered 05/10/20 Ordered By: Herber Rene Admission Data Admit Date/Time: 05/07/20 12:04 Attending Provider: Epifanio Parr Admit Provider: Epifanio Parr Primary Care Provider: Remi Trevino Other Providers: Adalberto Orantes Other Interventions: Discharge Summary Assessment (RN) Last Done: 05/10/20 09:00 Coding Level of Care Code D/C Day Management <30 mins Diagnoses Hiatal hernia K44.9
== END 2020-05-10 15:59 | disposition home or self-care (01) ==
LOC: ASU 07:58 → 3W 07:58